=== PATIENT | female | born 1975 | race Caucasian/White ===

== ENCOUNTER 2016-07-03 19:10 | Inpatient (IN) | payer OTHER ==
[~2016-07-03] VITALS: Ht 152.4 cm; Wt 152.7 kg
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
--- NOTE | ~2016-07-03 | DS ---
PATIENT'S NAME: ELVIA WHITMORE [facility] AGE: 40 Y [address] ROOM: [place] [address] LOCATION: GPCU ADMIT DATE: 07/03/2016 Discharge Summary DISCHARGE DATE: 07/07/2016 FAMILY PHYSICIAN: PHYSICIAN, NO ATTENDING PHYSICIAN: Avery Soto V PRIMARY DIAGNOSES: 1. Acute bilateral pulmonary emboli. 2. Coagulopathy. 3. Acute cor pulmonale. 4. Gastroesophageal reflux disease. 5. External otitis. 6. Morbid obesity. OPERATIONS/PROCEDURES: Echocardiogram was obtained initially on 07/04/2016 demonstrating an ejection fraction of 70% to 75%. [id number] left ventricular hypertrophy and severely dilated right ventricle. Repeat study done on 07/06/2016 showed improvement with mild dilatation of the right ventricle and pulmonary pressure of 36 mmHg. Venous Doppler ultrasound of the bilateral lower extremities shows no evidence of DVT. HISTORY OF PRESENTING ILLNESS/REASON FOR ADMISSION: Please refer to the H and P dictated 07/03/[address] Soto. HOSPITAL COURSE: The patient was admitted to the hospital as noted above with a presumptive diagnosis of bilateral pulmonary embolism. She was hemodynamically stable from the outset and only minimally symptomatic. This was surprising given the significant findings on echocardiography. Dr. Messina was consulted and it was recommended to proceed with thrombolysis with tPA. This was carried out successfully without any significant complications. The patient was monitored in the ICU. She did have a followup echocardiogram, which showed significant improvement in RV function as described above. By the third day of her hospital stay, she was able to be transitioned to Xarelto for anticoagulation. A hypercoagulable condition was suspected and studies were submitted. These were not available by the date of her discharge. Lupus anticoagulant studies were submitted and plans were made for her to follow up with her primary care provider. She expressed that she wanted to establish a new primary care provider and ultimately elected to schedule with Dr. Pfeiffer. She did develop some symptoms of external otitis on the right and she was placed on Cipro HC otic drops. She was recommended to follow up with primary PATIENT'S NAME: ELVIA WHITMORE [facility] AGE: 40 Y [address] ROOM: [place] [address] LOCATION: GPCU ADMIT DATE: 07/03/2016 Discharge Summary DISCHARGE DATE: 07/07/2016 FAMILY PHYSICIAN: , NO ATTENDING PHYSICIAN: Avery Soto V care provider for that as well. By the end of the 4th day of her hospital stay, it was felt she would be stable enough for discharge to home on oral anticoagulation therapy and plans for close clinical follow up with Dr. Pfeiffer. DISCHARGE INSTRUCTIONS: 1. Diet: Regular as tolerated. 2. Activity as tolerated. MEDICATIONS: 1. Xarelto 15 mg p.o. b.i.d. x21 days then 20 mg p.o. daily thereafter. 2. Omeprazole 20 mg p.o. daily. 3. Cipro HC otic drops 3 drops to the right ear b.i.d. x7 days. FOLLOWUP: She will follow up with Dr. Pfeiffer, Internal Medicine, in 5-7 days. CONDITION ON DISCHARGE: Fair. Total time spent on discharge process was 45 minutes. MD RITA GIANG/modl /[id number] d: 07/21/16 0523 t: 07/31/16 2359, DISCHARGE SUMMARY
--- NOTE | ~2016-07-03 | ENPV ---
Vascular Lower Extremities DVT Study Procedure Demographics Patient Name ELVIA WHITMORE Date of Study 07/04/2016 Patient Number [id number] Gender Female Date of 1975 Age 40 Visit Number [id number] Height 60 Accession Number [id number] Weight 335.01 Referring Karol Parr MD Interpreting Lloyd Noonan MD Physician Physician Physician Ordering Physician Bailey Sellers Marketing Strategist Laura Becker [facility] Conclusions Summary No evidence of deep vein thrombosis or superficial thrombophlebitis in the lower extremities bilaterally . Procedure Type of Study: Veins:Lower Extremities DVT Study, Venous Duplex Lower Extremity Bilateral. Indications for Study:Pulmonary embolism. Appropriate Use Criteria:9 Patient Status:Routine. Study Location:Inpatient Portable. Velocities are measured in cm/s ; Diameters are measured in cm Right Lower Extremities DVT Study Measurements Right 2D and Doppler Measurements + + + + +------+------+ + !Location !Visualized!Compressibility!Thrombosis!Signal!Reflux!Reflux ! ! ! ! ! ! ! !(sec) ! + + + + +------+------+ + !GSV Thigh !Yes !Yes !None !Phasic!No ! ! + + + + +------+------+ + !Common !Yes !Yes !None !Phasic!No ! ! !Femoral ! ! ! ! ! ! ! + + + + +------+------+ + !Prox !Yes !Yes !None !Phasic!No ! ! !Femoral ! ! ! ! ! ! ! + + + + +------+------+ + !Mid Femoral!Yes !Yes !None !Phasic!No ! ! + + + + +------+------+ + !Dist !Yes !Yes !None !Phasic!No ! ! !Femoral ! ! ! ! ! ! ! + + + + +------+------+ + !Popliteal !Yes !Yes !None !Phasic!No ! ! + + + + +------+------+ + !Gastroc !Yes !Yes !None !Phasic!No ! ! + + + + +------+------+ + !PTV !Yes !Yes !None !Phasic!No ! ! + + + + +------+------+ + !Peroneal !Yes !Yes !None !Phasic!No ! ! + + + + +------+------+ + Left Lower Extremities DVT Study Measurements Left 2D and Doppler Measurements + + + + +------+------+ + !Location !Visualized!Compressibility!Thrombosis!Signal!Reflux!Reflux ! ! ! ! ! ! ! !(sec) ! + + + + +------+------+ + !GSV Thigh !Yes !Yes !None !Phasic!No ! ! + + + + +------+------+ + !Common !Yes !Yes !None !Phasic!No ! ! !Femoral ! ! ! ! ! ! ! + + + + +------+------+ + !Prox !Yes !Yes !None !Phasic!No ! ! !Femoral ! ! ! ! ! ! ! + + + + +------+------+ + !Mid Femoral!Yes !Yes !None !Phasic!No ! ! + + + + +------+------+ + !Dist !Yes !Yes !None !Phasic!No ! ! !Femoral ! ! ! ! ! ! ! + + + + +------+------+ + !Popliteal !Yes !Yes !None !Phasic!No ! ! + + + + +------+------+ + !Gastroc !Yes !Yes !None !Phasic!No ! ! + + + + +------+------+ + !PTV !Yes !Yes !None !Phasic!No ! ! + + + + +------+------+ + !Peroneal !Yes !Yes !None !Phasic!No ! ! + + + + +------+------+ + Signature dtt: KYE BILLY dtd: 07/04/16 1012 Physician Self Edit
--- NOTE | ~2016-07-03 | ECHO ---
Transthoracic Echocardiography Report (TTE) Demographics Patient Name ELVIA WHITMORE Date of Study 07/06/2016 Patient Number [id number] Visit Number [id number] Date of 1975 Room Number G6326 Gender Female Number Age 40 year(s) Referring Ariana Toney [employer] Mill Tender Roya Mcgill, Physician AGUSTÍN RT,RVT,RDCS Physician Interpreting Kameron Adam Grain Processor Physician Supervising Ordering MD/MLP Physician Nurse Stress A P Supervisor Conclusions Summary Limited echocardiogram. Normal LV size and systolic function. RV is mildly dilated, normal RV systolic function. The pulmonary pressure (RVSP) is 36 mmHg. Compared to prior echocardiogram, the RV is smaller in size and RV function has improved. Procedure Type of Study TTE procedure:Echo Limited w/o Contrast. Procedure Date Date: 07/06/2016 Start: 12:33 PM Study Location: Inpatient Portable Technical Quality: Adequate visualization Indications:Pulmonary embolus. Appropriate Use Criteria: 2 Patient Status: Routine HR: 81 bpm M-Mode/2D Measurements RV Base: 3.8 cm RV Mid: 3.1 cm RV Length: 4.7 cm TAPSE: 3.4 cm TDI-S': 20 cm/s Doppler Measurements TR Velocity:2.55 m/s TR Gradient:26.01 mmHg Estimated RAP:10 mmHg Estimated PASP: 36.01 mmHg Estimated RVSP: 36 mmHg Findings Right Ventricle Normal right ventricle structure and function. Right Atrium The right atrium is mildly dilated. Tricuspid Valve The pulmonary pressure (RVSP) is 36 mmHg. Signature dtt: PHILIP COOPER dtd: 07/06/16 [facility] Physician Self Edit
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
--- NOTE | ~2016-07-03 | CON ---
PATIENT'S NAME: ELVIA WHITMORE [facility] AGE: 40 Y [address] ROOM: [place] [address] LOCATION: GPCU ADMIT DATE: 07/03/2016 Consultation DISCHARGE DATE: 07/07/2016 FAMILY PHYSICIAN: PHYSICIAN, NO ATTENDING PHYSICIAN: Avery Soto V DATE OF CONSULTATION: 07/04/2016 REFERRING PHYSICIAN: Kristopher Gerber DO INDICATION: Saddle embolus with severe right ventricular strain and need for possible tPA. HISTORY OF PRESENT ILLNESS: This is a 40-year-old female, admitted yesterday evening for bilateral PEs with saddle embolus. She reports a 2-day history of shortness of breath that worsened, so she presented to the ER and was found to have a positive D-dimer. Subsequently, a CT of the chest was performed revealing a saddle embolus. Vital signs have remained stable and so therefore she was started on heparin; however, echo results are now back showing severely dilated right ventricle and her septum being flattened. She has a history of her mother with a blood clot secondary to and a sister with a blood clot in the setting of breast cancer. She reports several years ago, about 10, being placed on oral contraceptives and 2 days later developing leg clots. She denies being placed on anticoagulation at that time and does not recall any further workup being done. Currently, she denies any worsening shortness of breath. She has mild chest pain with inspiration. She denies any lightheadedness, syncope, or edema. She has no other lung history or tobacco use. PAST MEDICAL HISTORY: Morbid obesity and possible history of thromboembolism to the lower extremities. ALLERGIES: SEE MAR. MEDICATIONS: See MAR. FAMILY HISTORY: Positive for blood clot in her mother in the setting of and her grandmother with unclear setting and in her sister in the setting of lung cancer. She herself has had 1 miscarriage in the past. SOCIAL HISTORY: She denies any tobacco or alcohol use. PATIENT'S NAME: ELVAI WHITMORE [facility] AGE: 40 Y [address] ROOM: [place] [address] LOCATION: GPCU ADMIT DATE: 07/03/2016 Consultation DISCHARGE DATE: 07/07/2016 FAMILY PHYSICIAN: PHYSICIAN, NO ATTENDING PHYSICIAN: Avery Soto V REVIEW OF SYSTEMS: All review systems are reviewed and are negative except for what is noted in the HPI. PHYSICAL EXAMINATION: VITAL SIGNS: Blood pressure 115/78, pulse 100, respirations 16, and temperature 99.2. She is 94% on room air. GENERAL: This is a 40-year-old, morbidly obese female who is alert and oriented x3 and appears in no acute distress at the time of exam. HEENT: Head: Normocephalic and atraumatic. Eyes: Clear. NECK: Supple. No adenopathy. No carotid bruits or JVD. LUNGS: Diminished in the bases. No rales or wheezes. HEART: Regular rate and rhythm without murmur, gallop, or rub. ABDOMEN: Soft, nontender, and nondistended. Bowel sounds x4. EXTREMITIES: No cyanosis, clubbing, or edema. DIAGNOSTIC DATA: Sodium 142, potassium 3.6, BUN 9, and creatinine 0.8. WBC 12.2, hemoglobin 13.8, hematocrit 44.8, and platelets 233. CRP 211. Rheumatoid arthritis negative. ASSESSMENT AND PLAN: 1. Bilateral pulmonary embolisms with small saddle embolus. 2. Acute cor pulmonale. 3. Hypertension. 4. Morbid obesity. PLAN: We will plan for tPA per Dr. Gerber's orders and further recommendations will be made pending the course of her stay. Thank you for the consult and opportunity to participate in the patient's care. KEV GRAY APRN FOR KRISTOPHER GERBER, [facility]/modl /[id number] d: 07/25/16 0140 t: 08/04/16 1328, CONSULTATION REPORT
--- NOTE | ~2016-07-03 | ECHO ---
Transthoracic Echocardiography Report (TTE) Demographics Patient Name ELVIA WHITMORE Date of Study 07/04/2016 Patient Number [id number] Visit Number [id number] Date of 1975 Room Number G6308 Accession Number [id number] Gender Female Age 40 year(s) Referring School Transportation Supervisor Laura Becker RVT Physician Physician Interpreting Kameron Adam Supervisor Hanging And Trimming Physician MD Supervising Ordering Physician Charles Rivas MD/EDWARDO SANCHEZ Nurse Stress Nutrition Coordinator Conclusions Contractility Score Summary Normal Left Ventricular contractility was noted. Summary The estimated left ventricular ejection fraction is 70-75%. Moderate to severe concentric left ventricular hypertrophy. Severely dilated RV with normal RV systolic function. The interventricular septum is flattened which is consistent with right ventricular pressure / and or volume overload. Diastolic assessment reveals Grade I diastolic dysfunction. The right atrium is mildly dilated. IVC not visualized due to poor subcostal window. Mild mitral annular calcification. Mild tricuspid regurgitation by color Doppler. Procedure Type of Study TTE procedure:2D Echocardiogram. Procedure Date Date: 07/04/2016 Start: 09:44 AM Study Location: Inpatient Portable Technical Quality: Limited visualization due to body habitus. Indications:Pulmonary embolus. Appropriate Use Criteria: 9 Patient Status: Routine HR: 96 bpm BP: 144/77 mmHg M-Mode/2D Measurements LV Diastolic Dimension: 3.38 cm LV Systolic Dimension: 2.03 cm LV Septum Diastolic: 1.79 cm LV PW Diastolic: 1.69 cm AO Root Dimension: 2.3 cm Cardiac Output: 3.24 l/min AV Cusp Separation: 1.9 cm RV Diastolic Dimension: 3.06 cm LVOT: 1.9 cm LVOT VTI: 11.9 cm LV Stroke volume: 33.72 ml TDI-S': 21.6 cm/s Doppler Measurements AV Peak Velocity: 1.29 m/s MV Peak E-Wave: 0.51 m/s AV Peak Gradient: 6.66 mmHg MV Peak A-Wave: 0.7 m/s AV Mean Gradient: 3 mmHg MV E/A Ratio: 0.73 LVOT Peak Velocity: 0.84 m/s TR Velocity:3.03 m/s PV Peak Velocity: 0.69 m/s TR Gradient:36.72 mmHg PV Peak Gradient: 1.9 mmHg A' Septal Velocity: 0.14 m/s E' Septal Velocity: 0.05 m/s A' Lateral Velocity: 0.1 m/s E' Lateral Velocity: 0.06 m/s Findings Left Ventricle Moderate to severe concentric left ventricular hypertrophy. Diastolic assessment reveals Grade I diastolic dysfunction. The interventricular septum is flattened which is consistent with right ventricular pressure / and or volume overload. Right Ventricle Severely dilated RV with normal RV systolic function. Left Atrium Normal left atrial size. Right Atrium The right atrium is mildly dilated. IVC not visualized due to poor subcostal window. Mitral Valve Mild mitral annular calcification. Aortic Valve Normal aortic valve structure and function. Tricuspid Valve Mild tricuspid regurgitation by color Doppler. PA systolic pressure could be an underestimate due to inadequate jet. Pulmonic Valve Normal pulmonic valve structure and function. Pericardial Effusion No evidence of pericardial effusion. Miscellaneous Visualized portions of the aortic root and ascending aorta appear normal in size. Pleural Effusion No evidence of pleural effusion. Contractility Score LV regional wall motion:(0-Non visualized 1-Normal 2-Hypokinesis 3-Akinesis 4-Dyskinesis 5-Aneurysm) Signature dtt: PHILIP COOPER dtd: 07/04/16 0944 Physician Self Edit
[2016-07-03 19:39] LABS: BASOPHIL % 0.2 %; EOSINOPHIL # 0.1 K/uL (0.0-0.5); EOSINOPHIL % 0.6 %; HEMATOCRIT 44.8 % (33.0-46.0); HEMOGLOBIN 13.8 g/dL (10.0-15.0); IMMATURE GRANULOCYTE % 0.2 %; LYMPHOCYTE # 3.1 K/uL (0.8-4.0); MCH 26.3 pg (27.0-34.0); MCHC 30.8 gm/dL (32.0-36.5); MCV 85.5 fl (83.0-98.0); MONOCYTE # 0.8 K/uL (0.0-1.0); MONOCYTE % 6.5 %; MPV 11.9 fl (9.4-12.4); NEUTROPHIL # (ANC) 8.3 K/uL (1.8-7.8); NEUTROPHIL % 67.5 %; NRBC % 0 /100WBC (0-0.00); PLATELET COUNT 233 K/uL (150-450); RBC 5.24 M/uL (3.50-5.50); RDW-CV 13.8 % (11.9-14.6); WBC 12.2 K/uL (4.0-11.0)
[2016-07-03 19:49] LABS: INR - (THERAPEUTIC) 0.97 (0.92-1.07); PROTIME 10.2 SECONDS (9.8-11.4); PTT 25 SECONDS (25-32)
[2016-07-03 19:59] LABS: ALBUMIN 3.9 gm/dL (3.5-5.0); ALK PHOS 100 IU/L (33-138); ALT 38 IU/L (12-78); ANION GAP 14.6 (10.0-19.0); AST 25 IU/L (10-40); BLOOD UREA NITROGEN 9 mg/dL (6-24); CALCIUM 8.6 mg/dL (8.5-10.5); CHLORIDE 106 mMol/L (96-110); CO2 25 mMol/L (22-32); CPK 114 IU/L (21-215); CREATININE 0.8 mg/dL (0.5-1.1); ESTIMATED GFR (MDRD EQUATION) > 60; POTASSIUM 3.6 mMol/L (3.7-5.1); SODIUM 142 mMol/L (135-145); TOTAL BILIRUBIN 0.6 mg/dL (0.0-1.5); TOTAL PROTEIN 8.2 g/dL (6.0-8.4)
[2016-07-03] MEDS ORDERED: PRILOSEC20 MG PO (22:51)
--- NOTE | 2016-07-03 22:53 | NUR ---
Pt lives [place] with . had increased sob and went to ed there. transfered here to us d/t pe-turns out to be saddle pt. started on heparin gtt in ed. VSS hr 116, 152/94, resp 20, temp 98.1, o2 94% on RA on arrival to unit. Pt is currently on ordered bedrest.
--- NOTE | 2016-07-04 04:48 | NUR ---
Pt admitted for bilat PE and saddle PE. Remains on RA, afebrile. HR 130-150's-with movement, 110-130's at rest. SBP 130-150's. Con't on heparin gtt at 2300- therapeutic x1- next ptthp at 1100. C/o r sided chest pain with movement/coughing. denies medication. MIdline JEFF. Plan: Con't PE protocol, Doppler of BLE
--- NOTE | 2016-07-04 11:21 | NUR ---
Introduced self and role of care management to patient and family. She lives in [place] with her . She states she is able to do all her own ADL's. Her does assist if needed. She plans on returning home on discharge. She denies any needs at this time. Will continue to follow.
--- NOTE | 2016-07-04 17:42 | NUR ---
Significant Event:Patient has continued on Heparin gtt, last Ptthp.- no change to rate. One drawn at 1700-results pending. Appetite good. Up to commode. States breathing is getting better, less discomfort and less SOB. Venous doppler was negative. Has had alot of company. Follow up:Continue heprain gtt
--- NOTE | 2016-07-05 03:44 | NUR ---
Significant Event: Patient A/Ox3, Follows commands. Moves all extremities. tPA given at 2044, mNIHSS 0. HR's 70's-90's. SBP 90's-130's. Afebrile. Remains on RA. SOB with movement. o2 sats >93%. Clear and diminished lung sounds throughout. Regular diet. NO BM during shift. Adeq Voids. Bedrest until AM. Tylenol given x1 for pain. Follow up: Monitor mNIHSS
[2016-07-05 05:34] LABS: BASOPHIL % 0.3 %; EOSINOPHIL # 0.2 K/uL (0.0-0.5); EOSINOPHIL % 1.5 %; HEMATOCRIT 40.2 % (33.0-46.0); HEMOGLOBIN 12.4 g/dL (10.0-15.0); IMMATURE GRANULOCYTE # 0.1 K/uL (0.0-0.3); IMMATURE GRANULOCYTE % 0.4 %; LYMPHOCYTE # 4.3 K/uL (0.8-4.0); LYMPHOCYTE % 36.8 %; MCH 26.2 pg (27.0-34.0); MCHC 30.8 gm/dL (32.0-36.5); MCV 84.8 fl (83.0-98.0); MONOCYTE # 0.8 K/uL (0.0-1.0); MONOCYTE % 7.2 %; MPV 11.9 fl (9.4-12.4); NEUTROPHIL # (ANC) 6.3 K/uL (1.8-7.8); NEUTROPHIL % 53.8 %; NRBC % 0 /100WBC (0-0.00); PLATELET COUNT 190 K/uL (150-450); RBC 4.74 M/uL (3.50-5.50); RDW-CV 14.2 % (11.9-14.6); WBC 11.7 K/uL (4.0-11.0)
[2016-07-05 05:50] LABS: ALBUMIN 3.3 gm/dL (3.5-5.0); ALK PHOS 82 IU/L (33-138); ALT 30 IU/L (12-78); ANION GAP 13.9 (10.0-19.0); AST 20 IU/L (10-40); BLOOD UREA NITROGEN 12 mg/dL (6-24); CHLORIDE 109 mMol/L (96-110); CO2 24 mMol/L (22-32); CREATININE 0.7 mg/dL (0.5-1.1); ESTIMATED GFR (MDRD EQUATION) > 60; POTASSIUM 3.9 mMol/L (3.7-5.1); SODIUM 143 mMol/L (135-145); TOTAL BILIRUBIN 0.6 mg/dL (0.0-1.5); TOTAL PROTEIN 7.1 g/dL (6.0-8.4)
--- NOTE | 2016-07-05 16:38 | NUR ---
Significant Event:A/O X 3. Ambulates with SBA, up to recliner, bathroom. Prefers recliner to the bed. CSM's, adequate. Showered this AM with assistance. Remains on RA. SOB with exertion is improved but still noticeable. Tolerating PO fluids and regular diet. Voiding without problems. LG BM today. Discussed patient concerns/fears and ideas about being screened for cancer, since her sister was diagnosed in May with stage 4 breast CA that was diagnosed with a saddle PE. Patient is tearful, but interested in discussing. Follow up:Transfer to PCU after 2044.
[2016-07-06 06:19] LABS: BASOPHIL % 0.3 %; EOSINOPHIL # 0.2 K/uL (0.0-0.5); HEMATOCRIT 39.6 % (33.0-46.0); HEMOGLOBIN 12.1 g/dL (10.0-15.0); IMMATURE GRANULOCYTE # 0.1 K/uL (0.0-0.3); IMMATURE GRANULOCYTE % 0.6 %; LYMPHOCYTE # 4.1 K/uL (0.8-4.0); LYMPHOCYTE % 37.7 %; MCH 26.3 pg (27.0-34.0); MCHC 30.6 gm/dL (32.0-36.5); MCV 86.1 fl (83.0-98.0); MONOCYTE # 0.7 K/uL (0.0-1.0); MONOCYTE % 6.5 %; MPV 11.8 fl (9.4-12.4); NEUTROPHIL # (ANC) 5.8 K/uL (1.8-7.8); NEUTROPHIL % 52.9 %; NRBC % 0 /100WBC (0-0.00); PLATELET COUNT 181 K/uL (150-450); RDW-CV 14.2 % (11.9-14.6); WBC 10.9 K/uL (4.0-11.0)
--- NOTE | 2016-07-06 17:37 | NUR ---
Significant Event: Alert and oriented X 3. Room air. SBP 110's, 120's and 140's. HR 70's. Independent in room. Walked the halls. Lung sounds clear and diminished. Heparin stopped this shift and Xarelto started. Pleasant and cooprative with cares. Follow up:
[2016-07-07 03:28] LABS: BASOPHIL % 0.3 %; EOSINOPHIL # 0.2 K/uL (0.0-0.5); EOSINOPHIL % 2.2 %; HEMATOCRIT 37.5 % (33.0-46.0); HEMOGLOBIN 11.6 g/dL (10.0-15.0); IMMATURE GRANULOCYTE # 0.1 K/uL (0.0-0.3); IMMATURE GRANULOCYTE % 0.5 %; LYMPHOCYTE # 2.9 K/uL (0.8-4.0); MCH 26.8 pg (27.0-34.0); MCHC 30.9 gm/dL (32.0-36.5); MCV 86.6 fl (83.0-98.0); MONOCYTE # 0.7 K/uL (0.0-1.0); MPV 11.9 fl (9.4-12.4); NEUTROPHIL # (ANC) 5.5 K/uL (1.8-7.8); NRBC % 0 /100WBC (0-0.00); PLATELET COUNT 190 K/uL (150-450); RBC 4.33 M/uL (3.50-5.50); RDW-CV 14.1 % (11.9-14.6); WBC 9.3 K/uL (4.0-11.0)
[2016-07-07 03:49] LABS: ALBUMIN 3.3 gm/dL (3.5-5.0); ALK PHOS 74 IU/L (33-138); ALT 34 IU/L (12-78); ANION GAP 12.9 (10.0-19.0); AST 22 IU/L (10-40); BLOOD UREA NITROGEN 10 mg/dL (6-24); CALCIUM 8.6 mg/dL (8.5-10.5); CHLORIDE 108 mMol/L (96-110); CO2 24 mMol/L (22-32); CREATININE 0.7 mg/dL (0.5-1.1); ESTIMATED GFR (MDRD EQUATION) > 60; POTASSIUM 3.9 mMol/L (3.7-5.1); SODIUM 141 mMol/L (135-145); TOTAL BILIRUBIN 0.4 mg/dL (0.0-1.5); TOTAL PROTEIN 6.9 g/dL (6.0-8.4)
--- NOTE | 2016-07-07 04:27 | NUR ---
Significant Event: A/O x3. Afebrile. Denies pain. VSS on RA. SBP 110-133s. HR 70-80s. LS clear/dim. Up adlib. Rt upper arm IV patent. Cooperative with cares. Follow up: D/C today.
[2016-07-07] MEDS ORDERED: XARELTO15 MG PO (13:39)
[2016-07-07] MEDS ORDERED: CIPRO HC OTIC S10 ML PO (13:45)
[2016-07-07] MEDS ORDERED: XARELTO20 MG PO (13:50)
--- NOTE | 2016-07-07 18:07 | NUR ---
A&O. VSS, AFEBRILE, ROOM AIR. SOME SHORTNESS OF BREATH WITH ACTIVITY AND COMPLAINT OF BRUISING. R) MIDLINE REMOVED. PT SHOWERED INDEPENDENTLY. COMPLAINT OF R) EAR PAIN, NEW ORDER FOR OTIC DROPS. DISCHARGE INSTRUCTIONS DISCUSSED, VERBALIZED UNDERSTANDING. BELONGINGS WITH PT, TOOK TO CAR VIA WHEELCHAIR, FAMILY TO TRANSPORT TO HOME.
== END 2016-07-07 15:00 | disposition disaster alternative care site (69) | DRG 175 ==
LOC: GMED 19:10 → GICU 22:14 → GPCU 22:14 → GICU 07-04 19:18 → GPCU 07-06 05:37
PROVIDERS: Family Medicine; Nurse Practitioner; Nurse Practitioner Family; Thoracic Surgery (Cardiothoracic Vascular Surgery); ADMIT Internal Medicine
DX: I26.02 Saddle embolus of pulmonary artery with acute cor pulmonale (principal); D68.62 Lupus anticoagulant syndrome; Z68.44 Body mass index [BMI] 60.0-69.9, adult; E66.01 Morbid (severe) obesity due to excess calories; I10 Essential (primary) hypertension; Z86.718 Personal history of other venous thrombosis and embolism; Z90.710 Acquired absence of both cervix and uterus
CPT/HCPCS: C1751; J1644; J2997; J7030; Q9967

== ENCOUNTER → 2016-08-17 | Outpatient (CLI) | payer OTHER ==
[~2016-08-17] MED LIST: CIPRO HC OTIC S10 ML PO; PRILOSEC20 MG PO; XARELTO15 MG PO; XARELTO20 MG PO
== END | disposition disaster alternative care site (69) ==
LOC: GBCOE 11:30
DX: Z12.31 Encounter for screening mammogram for malignant neoplasm of breast (principal)
CPT/HCPCS: G0202